=== PATIENT | female | born 1975 | race Caucasian/White ===

== ENCOUNTER 2022-04-14 13:24 | Inpatient (IN) | payer OTHER ==
[2022-04-14] MEDS ORDERED: KETOROLAC TROMETHAMINE 30 MG/1 ML VIAL IVPUSH ONE (14:09)
[2022-04-14] MEDS ORDERED: SODIUM CHLORIDE 1,000 ML IV STA (14:09)
[2022-04-14] MEDS ORDERED: KETOROLAC TROMETHAMINE 30 MG/1 ML VIAL ONE (16:46)
[2022-04-14 16:53] LABS: BASO % 0.4 % (0-2.0); EOS % 1.4 % (0-4.5); HEMATOCRIT 40.7 % (32.4-45.2); HEMOGLOBIN 13.8 GM/dL (10.7-15.3); LYMPH % 16.2 % (8-40); MCH 29.6 pg (25.7-33.7); MCHC 33.8 g/dl (32.0-36.0); MEAN CELL VOLUME 87.5 fl (80-96); MEAN PLT VOLUME 8.9 fl (7.5-11.1); MONO % 8.3 % (3.8-10.2); NEUT % 73.7 % (42.8-82.8); PLATELET COUNT 275 10^3/uL (134-434); RBC 4.65 M/mm3 (3.60-5.2); RDW 13.1 % (11.6-15.6); WHITE BLOOD COUNT 12.5 K/mm3 (4.0-10.0)
[2022-04-14 17:11] LABS: EPI CELLS >36 /uL (0-25.1); HYALINE CASTS 1 /uL (0-3.1); URINE APPEARANCE CLOUDY; URINE BACTERIA 341 /uL (0-1359); URINE BILIRUBIN NEGATIVE (NEGATIVE); URINE COLOR YELLOW; URINE GLUCOSE (UA) NEGATIVE (NEGATIVE); URINE KETONE NEGATIVE (NEGATIVE); URINE LEUK ESTERASE TRACE (NEGATIVE); URINE NITRITE NEGATIVE (NEGATIVE); URINE PROTEIN NEGATIVE (NEGATIVE); URINE RBC 37 /uL (0-23.9); URINE WBC 7 /uL (0-25.8)
[2022-04-14 17:20] LABS: HCG,QUALITATIVE URINE Negative
[2022-04-14 17:23] LABS: ALBUMIN 3.8 g/dl (3.4-5.0); CALCIUM 9.3 mg/dL (8.5-10.1)
[2022-04-14 17:26] LABS: CREATININE 0.6 mg/dL (0.55-1.3)
[2022-04-14 17:28] LABS: BILIRUBIN,TOTAL 0.8 mg/dL (0.2-1)
[2022-04-14] MEDS ORDERED: CEFTRIAXONE 2,000 MG in DEXTROSE 5%-WATER - 50 ML IVPB ONE (23:10)
[2022-04-14] MEDS ORDERED: CEFTRIAXONE 2 GM/100 ML BAG IVPB ONE (23:28)
[2022-04-14] MEDS ORDERED: ACETAMINOPHEN 1000 MG/100 ML BAG IVPB ONE (23:34)
[2022-04-14] MEDS ORDERED: ONDANSETRON 4 MG/2 ML VIAL IVPUSH PRN (23:36)
[2022-04-15] MEDS ORDERED: morphine SULFATE 4 MG/ML VIAL IVPUSH ONE (00:19)
[2022-04-15] MEDS ORDERED: ACETAMINOPHEN 1000 MG/100 ML BAG IVPB PRN (06:00)
[2022-04-15 07:35] LABS: BASO % 0.5 % (0-2.0); EOS % 3.2 % (0-4.5); HEMATOCRIT 38.7 % (32.4-45.2); HEMOGLOBIN 13.2 GM/dL (10.7-15.3); LYMPH % 19.8 % (8-40); MCH 29.9 pg (25.7-33.7); MCHC 34.1 g/dl (32.0-36.0); MEAN CELL VOLUME 87.6 fl (80-96); MEAN PLT VOLUME 8.9 fl (7.5-11.1); MONO % 8.9 % (3.8-10.2); NEUT % 67.6 % (42.8-82.8); PLATELET COUNT 241 10^3/uL (134-434); RBC 4.42 M/mm3 (3.60-5.2); RDW 13.2 % (11.6-15.6); WHITE BLOOD COUNT 10.4 K/mm3 (4.0-10.0)
[2022-04-15 07:55] LABS: ALBUMIN 3.3 g/dl (3.4-5.0); CALCIUM 8.4 mg/dL (8.5-10.1)
[2022-04-15 07:56] LABS: BLOOD UREA NITROGEN 9.4 mg/dL (7-18)
[2022-04-15 07:59] LABS: CREATININE 0.4 mg/dL (0.55-1.3); MAGNESIUM 2.2 mg/dL (1.8-2.4)
[2022-04-15 08:01] LABS: BILIRUBIN,TOTAL 0.8 mg/dL (0.2-1); TOT PROT 6.9 g/dl (6.4-8.2)
[2022-04-15 08:23] LABS: INR 1.11 (0.83-1.09); PROTHROMBIN TIME (PATIENT) 12.8 SEC (9.7-13.0)
[2022-04-15 08:26] LABS: ACTIVATED PTT 28.8 SECONDS (25.2-36.5)
[2022-04-15] MEDS: DEXTROSE 5%-NORMAL SALINE 1,000 ML IV SCH ×2 (09:07→23:13)
[2022-04-15 13:46] VITALS: BMI 31.6
[2022-04-15] MEDS ORDERED: FLU VACC QS2021-22(6MOS UP)/PF 60 MCG/0.5 ML SYRINGE IM ONE (19:08)
[2022-04-15] MEDS ORDERED: DEXTROSE 5%-WATER 100 ML IVPB ONE (21:04)
[2022-04-15] MEDS: CEFTRIAXONE 2 GM in DEXTROSE 5%-WATER 100 ML IVPB SCH (21:16)
[2022-04-15] MEDS ORDERED: CEFTRIAXONE 1 GM in DEXTROSE 5%-WATER - 50 ML IVPB SCH (22:00)
[2022-04-16] MEDS: ENOXAPARIN NA (PORCINE) 40 MG/0.4 ML DISP.SYRIN SQ SCH (11:12)
[2022-04-16] MEDS: DEXTROSE 5%-NORMAL SALINE 1,000 ML IV SCH (11:13)
[2022-04-16] MEDS: ACETAMINOPHEN 325 MG TABLET (FP) PO PRN (13:28)
[2022-04-16] MEDS ORDERED: DEXTROSE 5%-WATER 100 ML IVPB ONE (21:24)
[2022-04-16] MEDS: CEFTRIAXONE 2 GM in DEXTROSE 5%-WATER 100 ML IVPB SCH (21:46)
[2022-04-17] MEDS: DEXTROSE 5%-NORMAL SALINE 1,000 ML IV SCH ×2 (03:12→13:22)
[2022-04-17 09:29] LABS: BASO % 0.4 % (0-2.0); EOS % 7.3 % (0-4.5); HEMATOCRIT 38.7 % (32.4-45.2); HEMOGLOBIN 13.3 GM/dL (10.7-15.3); MCHC 34.4 g/dl (32.0-36.0); MEAN PLT VOLUME 8.3 fl (7.5-11.1); MONO % 7.4 % (3.8-10.2); NEUT % 56.9 % (42.8-82.8); PLATELET COUNT 289 10^3/uL (134-434); RBC 4.44 M/mm3 (3.60-5.2); RDW 12.9 % (11.6-15.6); WHITE BLOOD COUNT 6.7 K/mm3 (4.0-10.0)
[2022-04-17 09:52] LABS: BLOOD UREA NITROGEN 7.5 mg/dL (7-18); CALCIUM 8.4 mg/dL (8.5-10.1)
[2022-04-17 09:53] LABS: ALBUMIN 3.4 g/dl (3.4-5.0)
[2022-04-17 09:55] LABS: CHOLESTEROL 196 mg/dL (50-200); CREATININE 0.5 mg/dL (0.55-1.3)
[2022-04-17 09:56] LABS: HDL CHOLESTEROL 44 mg/dL (40-60); LDL CHOLESTEROL (ONLY SJRH) 128 mg/dL (5-100); TRIGLYCERIDES 178 mg/dL (0-150)
[2022-04-17 09:57] LABS: BILIRUBIN,TOTAL 0.5 mg/dL (0.2-1)
[2022-04-17] MEDS: ENOXAPARIN NA (PORCINE) 40 MG/0.4 ML DISP.SYRIN SQ SCH (10:30)
[2022-04-17] MEDS: ACETAMINOPHEN 325 MG TABLET (FP) PO PRN (13:22)
[2022-04-17 14:51] VITALS: BP 112/67; PULSE 73; TEMP 97.9
== END 2022-04-17 17:42 | disposition home or self-care (01) | DRG 244 ==
LOC: JER 13:24 → JERBED 23:12 → J5S 04-15 11:04
PROVIDERS: ADMIT Hospitalist
DX: K57.32 Diverticulitis of large intestine without perforation or abscess without bleeding (principal); E78.5 Hyperlipidemia, unspecified; D72.829 Elevated white blood cell count, unspecified; E66.9 Obesity, unspecified; Z68.31 Body mass index [BMI] 31.0-31.9, adult
CPT/HCPCS: 36415; 74177-TC; 76830-TC; 80053; 80061; 81003; 83036; 83735; 84443; 84703; 85025; 85610; 85730; 87077; 87086; 87186; 90686; 99285-25; C9803-CS; G0008; Q9967; U0003; U0005

== ENCOUNTER 2022-10-09 04:50 | Day surgery (SDC) | payer OTHER ==
[2022-10-03 14:20] VITALS: BMI 31.2
[2022-10-09] MEDS ORDERED: EPINEPHrine 1:10,000 (P-F SYR) 1 MG/10 ML DISP.SYRIN IM ONE (14:25)
[2022-10-09 15:30] VITALS: RESP 17
[2022-10-09 15:36] VITALS: BP 111/72; PULSE 64; TEMP 98
== END 2022-10-09 15:42 | disposition home or self-care (01) ==
LOC: JASU-ENDO 04:50
PROVIDERS: ATTEND Internal Medicine Gastroenterology
PROC: 0D5N8ZZ Destruction of Sigmoid Colon, Via Natural or Artificial Opening Endoscopic (ICD-10-PCS; 2022-10-09)
PROC: 0DBL8ZX Excision of Transverse Colon, Via Natural or Artificial Opening Endoscopic, Diagnostic (ICD-10-PCS; 2022-10-09)
PROC: 0D5H8ZZ Destruction of Cecum, Via Natural or Artificial Opening Endoscopic (ICD-10-PCS; principal; 2022-10-09 13:00)
DX: K57.30 Diverticulosis of large intestine without perforation or abscess without bleeding (principal); D12.0 Benign neoplasm of cecum; D12.5 Benign neoplasm of sigmoid colon; D12.3 Benign neoplasm of transverse colon; K64.8 Other hemorrhoids
CPT/HCPCS: 88305-TC; 88342-TC

== ENCOUNTER 2022-10-23 04:31 | Day surgery (SDC) | payer OTHER ==
[2022-10-18 16:01] VITALS: BMI 31.2
[2022-10-23 10:39] VITALS: TEMP 97.3
[2022-10-23 11:17] VITALS: BP 110/69; PULSE 75; RESP 18
== END 2022-10-23 11:45 | disposition home or self-care (01) ==
LOC: JASU-ENDO 04:31 → MERGE 09:30 → JASU-ENDO 11:45
PROVIDERS: ATTEND Internal Medicine Gastroenterology
PROC: 0DB78ZX Excision of Stomach, Pylorus, Via Natural or Artificial Opening Endoscopic, Diagnostic (ICD-10-PCS; 2022-10-23)
PROC: 0DB68ZX Excision of Stomach, Via Natural or Artificial Opening Endoscopic, Diagnostic (ICD-10-PCS; 2022-10-23)
PROC: 0DB98ZX Excision of Duodenum, Via Natural or Artificial Opening Endoscopic, Diagnostic (ICD-10-PCS; principal; 2022-10-23 09:30)
DX: K29.50 Unspecified chronic gastritis without bleeding (principal); B96.81 Helicobacter pylori [H. pylori] as the cause of diseases classified elsewhere
CPT/HCPCS: 81025; 88305-TC; 88341-TC; 88342-TC

== ENCOUNTER 2022-12-11 11:15 | Inpatient (IN) | payer OTHER ==
[2022-12-11] MEDS ORDERED: morphine CARPU-JECT 4 MG/1 ML DISP.SYRIN IVPUSH ONE ×2 (12:33→16:04)
[2022-12-11] MEDS ORDERED: morphine SULFATE 4 MG/ML VIAL ONE ×2 (12:43→16:41)
[2022-12-11 13:37] LABS: BASO % 0.3 % (0-2.0); EOS % 0.2 % (0-4.5); HEMATOCRIT 41.8 % (32.4-45.2); HEMOGLOBIN 14.1 GM/dL (10.7-15.3); LYMPH % 9.7 % (8-40); MCH 29.4 pg (25.7-33.7); MCHC 33.6 g/dl (32.0-36.0); MEAN CELL VOLUME 87.6 fl (80-96); MEAN PLT VOLUME 8.6 fl (7.5-11.1); NEUT % 81.8 % (42.8-82.8); PLATELET COUNT 263 10^3/uL (134-434); RBC 4.78 M/mm3 (3.60-5.2); RDW 13.4 % (11.6-15.6); WHITE BLOOD COUNT 16.1 K/mm3 (4.0-10.0)
[2022-12-11 13:42] LABS: INR 1.2 (0.83-1.09); PROTHROMBIN TIME (PATIENT) 13.9 SEC (9.7-13.0)
[2022-12-11 13:45] LABS: ACTIVATED PTT 31.5 SECONDS (25.2-36.5)
[2022-12-11 14:03] LABS: CALCIUM 9.5 mg/dL (8.5-10.1)
[2022-12-11 14:04] LABS: ALBUMIN 3.9 g/dl (3.4-5.0); BLOOD UREA NITROGEN 11.9 mg/dL (7-18)
[2022-12-11 14:07] LABS: CREATININE 0.6 mg/dL (0.55-1.3)
[2022-12-11 14:08] LABS: BILIRUBIN,TOTAL 1.1 mg/dL (0.2-1)
[2022-12-11 15:30] LABS: EPI CELLS >36 /uL (0-25.1); HYALINE CASTS 9 /uL (0-3.1); URINE APPEARANCE CLOUDY; URINE BACTERIA 255 /uL (0-1359); URINE BILIRUBIN NEGATIVE (NEGATIVE); URINE COLOR YELLOW; URINE GLUCOSE (UA) NEGATIVE (NEGATIVE); URINE KETONE TRACE (NEGATIVE); URINE LEUK ESTERASE 1+ (NEGATIVE); URINE NITRITE NEGATIVE (NEGATIVE); URINE PROTEIN TRACE (NEGATIVE); URINE WBC 81 /uL (0-25.8)
[2022-12-11 15:32] LABS: URINE RBC 56 /uL (0-23.9)
[2022-12-11] MEDS ORDERED: CEFTRIAXONE 1,000 MG in DEXTROSE 5%-WATER - 50 ML IVPB ONE (16:05)
[2022-12-11] MEDS ORDERED: SODIUM CHLORIDE 0.9% 500 ML INFUS.BAG IV ONE (16:05)
[2022-12-11] MEDS ORDERED: LACTATED RINGERS SOLUTION 1,000 ML/1,000 ML INFUS.BAG IV SCH (16:15)
[2022-12-11] MEDS ORDERED: CEFTRIAXONE 1 GM/50 ML BAG ONE (16:42)
[2022-12-11] MEDS ORDERED: ACETAMINOPHEN 325 MG TABLET (FP) ONE (17:36)
[2022-12-11] MEDS: ACETAMINOPHEN 325 MG TABLET (FP) PO PRN (17:41)
[2022-12-11 18:22] VITALS: BMI 29.2
[2022-12-11] MEDS: LACTATED RINGERS SOLUTION 1,000 ML IV SCH (20:57)
[2022-12-11] MEDS: metroNIDAZOLE 250 MG TABLET PO SCH (21:57)
[2022-12-12] MEDS: ACETAMINOPHEN 325 MG TABLET (FP) PO PRN ×2 (06:44→14:25)
[2022-12-12] MEDS: metroNIDAZOLE 250 MG TABLET PO SCH ×2 (06:44→14:14)
[2022-12-12] MEDS: LACTATED RINGERS SOLUTION 1,000 ML IV SCH ×2 (09:42→17:19)
[2022-12-12] MEDS: CEFTRIAXONE 1 GM in DEXTROSE 5%-WATER 100 ML IVPB SCH (09:43)
[2022-12-12] MEDS: ENOXAPARIN NA (PORCINE) 40 MG/0.4 ML DISP.SYRIN SQ SCH (09:43)
[2022-12-12 09:59] LABS: HEMATOCRIT 35.3 % (32.4-45.2); HEMOGLOBIN 12.5 GM/dL (10.7-15.3); MCH 31.1 pg (25.7-33.7); MCHC 35.5 g/dl (32.0-36.0); MEAN CELL VOLUME 87.5 fl (80-96); MEAN PLT VOLUME 8.6 fl (7.5-11.1); PLATELET COUNT 225 10^3/uL (134-434); RBC 4.03 M/mm3 (3.60-5.2); RDW 13.2 % (11.6-15.6); WHITE BLOOD COUNT 12.8 K/mm3 (4.0-10.0)
[2022-12-12 10:41] LABS: CALCIUM 8.8 mg/dL (8.5-10.1)
[2022-12-12 10:42] LABS: BLOOD UREA NITROGEN 9.7 mg/dL (7-18)
[2022-12-12 10:45] LABS: CREATININE 0.6 mg/dL (0.55-1.3)
[2022-12-13 07:59] LABS: BLOOD UREA NITROGEN 6.6 mg/dL (7-18); CALCIUM 8.8 mg/dL (8.5-10.1)
[2022-12-13 08:02] LABS: CREATININE 0.6 mg/dL (0.55-1.3)
[2022-12-13 08:22] LABS: BASO % 0.3 % (0-2.0); EOS % 2.2 % (0-4.5); HEMATOCRIT 35.5 % (32.4-45.2); HEMOGLOBIN 12.2 GM/dL (10.7-15.3); LYMPH % 15.7 % (8-40); MCH 29.7 pg (25.7-33.7); MCHC 34.2 g/dl (32.0-36.0); MEAN CELL VOLUME 86.9 fl (80-96); MEAN PLT VOLUME 8.8 fl (7.5-11.1); MONO % 7.7 % (3.8-10.2); NEUT % 74.1 % (42.8-82.8); PLATELET COUNT 242 10^3/uL (134-434); RBC 4.09 M/mm3 (3.60-5.2); WHITE BLOOD COUNT 10.8 K/mm3 (4.0-10.0)
[2022-12-13] MEDS: CEFTRIAXONE 1 GM in DEXTROSE 5%-WATER 100 ML IVPB SCH (09:47)
[2022-12-13] MEDS: ENOXAPARIN NA (PORCINE) 40 MG/0.4 ML DISP.SYRIN SQ SCH (09:55)
[2022-12-13] MEDS: ACETAMINOPHEN 325 MG TABLET (FP) PO PRN ×3 (10:53→23:01)
[2022-12-13 10:54] LABS: PHOSPHOROUS 3.2 mg/dL (2.5-4.9)
[2022-12-13] MEDS: D5-1/2NS+10 MEQ KCL - 10 MEQ/1,000 ML INFUS.BAG IV SCH (15:01)
[2022-12-14] MEDS: CEFTRIAXONE 1 GM in DEXTROSE 5%-WATER 100 ML IVPB SCH (09:21)
[2022-12-14 09:22] LABS: BASO % 0.9 % (0-2.0); EOS % 6.4 % (0-4.5); HEMATOCRIT 37.7 % (32.4-45.2); HEMOGLOBIN 12.7 GM/dL (10.7-15.3); LYMPH % 34.2 % (8-40); MCH 29.6 pg (25.7-33.7); MCHC 33.8 g/dl (32.0-36.0); MEAN CELL VOLUME 87.4 fl (80-96); MEAN PLT VOLUME 8.3 fl (7.5-11.1); NEUT % 52.5 % (42.8-82.8); PLATELET COUNT 321 10^3/uL (134-434); RBC 4.31 M/mm3 (3.60-5.2); RDW 13.2 % (11.6-15.6); WHITE BLOOD COUNT 5.1 K/mm3 (4.0-10.0)
[2022-12-14] MEDS: ENOXAPARIN NA (PORCINE) 40 MG/0.4 ML DISP.SYRIN SQ SCH (09:22)
[2022-12-14 10:00] LABS: CALCIUM 9.2 mg/dL (8.5-10.1)
[2022-12-14 10:04] LABS: BLOOD UREA NITROGEN 6.2 mg/dL (7-18); MAGNESIUM 2.1 mg/dL (1.8-2.4)
[2022-12-14 10:07] LABS: CREATININE 0.5 mg/dL (0.55-1.3)
[2022-12-14] MEDS: D5-1/2NS+10 MEQ KCL - 10 MEQ/1,000 ML INFUS.BAG IV SCH (15:53)
[2022-12-14] MEDS: ACETAMINOPHEN 325 MG TABLET (FP) PO PRN (22:21)
[2022-12-15] MEDS: ACETAMINOPHEN 325 MG TABLET (FP) PO PRN (06:22)
[2022-12-15 08:54] LABS: BASO % 0.9 % (0-2.0); EOS % 8.1 % (0-4.5); HEMATOCRIT 39.4 % (32.4-45.2); HEMOGLOBIN 13.1 GM/dL (10.7-15.3); LYMPH % 35.7 % (8-40); MCH 29.2 pg (25.7-33.7); MCHC 33.2 g/dl (32.0-36.0); MEAN CELL VOLUME 87.8 fl (80-96); MEAN PLT VOLUME 8.1 fl (7.5-11.1); NEUT % 48.3 % (42.8-82.8); PLATELET COUNT 344 10^3/uL (134-434); RBC 4.48 M/mm3 (3.60-5.2); RDW 13.2 % (11.6-15.6); WHITE BLOOD COUNT 5.3 K/mm3 (4.0-10.0)
[2022-12-15 09:06] LABS: CALCIUM 9.3 mg/dL (8.5-10.1)
[2022-12-15 09:07] LABS: BLOOD UREA NITROGEN 8.6 mg/dL (7-18)
[2022-12-15 09:10] LABS: CREATININE 0.6 mg/dL (0.55-1.3)
[2022-12-15] MEDS: ENOXAPARIN NA (PORCINE) 40 MG/0.4 ML DISP.SYRIN SQ SCH ×2 (09:25→09:40)
[2022-12-15 09:40] VITALS: RESP 18
[2022-12-15 15:04] VITALS: BP 103/64; PULSE 73; TEMP 97.9
== END 2022-12-15 18:00 | disposition home or self-care (01) | DRG 244 ==
LOC: JER 11:15 → OBSVTOIN 16:04 → JERBED 16:04 → J8W 19:48
PROVIDERS: ADMIT Internal Medicine; ATTEND Internal Medicine
DX: K57.32 Diverticulitis of large intestine without perforation or abscess without bleeding (principal); D72.829 Elevated white blood cell count, unspecified; R10.32 Left lower quadrant pain
CPT/HCPCS: 36415; 74177-TC; 80048; 80053; 81003; 83605; 83690; 83735; 84100; 84703; 85025; 85027; 85610; 85730; 86140; 93005; 93010; 99285-25; C9803-CS; Q9967; U0003; U0005

== ENCOUNTER 2025-05-11 05:30 | Emergency (ER) | payer OTHER ==
[2025-05-11 05:40] VITALS: RESP 18; BMI 29.2
[2025-05-11] MEDS ORDERED: METHOCARBAMOL 500 MG TABLET ONE (06:15)
[2025-05-11] MEDS ORDERED: KETOROLAC TROMETHAMINE 30 MG/1 ML VIAL ONE (06:16)
[2025-05-11] MEDS ORDERED: DEXAMETHASONE 4 MG TABLET (FP) ONE (06:16)
[2025-05-11] MEDS ORDERED: LIDOCAINE 4% PATCH TP ONE (06:16)
[2025-05-11] MEDS: METHOCARBAMOL 500 MG TABLET PO ONE (06:31)
[2025-05-11] MEDS: DEXAMETHASONE 4 MG TABLET (FP) PO ONE (06:31)
[2025-05-11] MEDS: KETOROLAC TROMETHAMINE 30 MG/1 ML VIAL IM ONE (06:31)
[2025-05-11] MEDS: LIDOCAINE 4% PATCH TP ONE (06:31)
[2025-05-11] MEDS ORDERED: LIDOCAINE 5% TOPICAL PATCH ONE (08:25)
[2025-05-11] MEDS ORDERED: ACETAMINOPHEN 500 MG TABLET (FP) ONE (08:26)
[2025-05-11] MEDS: ACETAMINOPHEN 500 MG TABLET (FP) PO ONE (08:37)
[2025-05-11] MEDS: LIDOCAINE 5% TOPICAL PATCH TP ONE (08:37)
[2025-05-11 09:36] VITALS: BP 109/75; PULSE 72; TEMP 98.2
[2025-05-11 13:28] LABS: HIV INTERPRETATION NEGATIVE (NEGATIVE)
[2025-05-11 13:34] LABS: HCV DIAGNOSTIC IN-HOUSE W/RFLX NON-REACTIVE (NONREACTIVE)
[2025-05-11] MEDS ORDERED: LIDOCAINE PATCH REMOVAL MC ONE (19:00)
== END 2025-05-11 10:07 | disposition home or self-care (01) ==
LOC: JER 05:30
PROC: 3E0233Z Introduction of Anti-inflammatory into Muscle, Percutaneous Approach (ICD-10-PCS; principal; 2025-05-11)
DX: M54.2 Cervicalgia (principal)
CPT/HCPCS: 36415; 86803; 87389; 93005; 93010; 96372; 99284-25